=== PATIENT | female | born 1940 | race Caucasian/White ===

== ENCOUNTER 2020-12-06 00:47 | Inpatient (IN) ==
[2020-12-06] MEDS ORDERED: GLUCAGON 1 MG VIAL IM PRN (03:27)
[2020-12-06] MEDS ORDERED: diphenhydrAMINE CAP 25 MG CAPSULE PO PRN (03:27)
[2020-12-06] MEDS ORDERED: ONDANSETRON 4 MG/2 ML VIAL IV PRN (03:27)
[2020-12-06] MEDS ORDERED: DEXTROSE 50% 25 GM/50 ML VIAL IV PRN (03:27)
[2020-12-06] MEDS ORDERED: NICOTINE 21 MG/24 HR PATCH TRANSDERM PRN (03:27)
[2020-12-06] MEDS ORDERED: guaiFENesin/DM ER 600-30 MG TABLET PO PRN (03:27)
[2020-12-06] MEDS ORDERED: AZITHROMYCIN INJ 500 MG in SODIUM CHLORIDE 0.9% 250 ML IV ONE (03:27)
[2020-12-06 05:13] LABS: Basophils % 0.1 % (0.0-0.8); Eosinophils % 0.2 % (0.00-10.9); Hematocrit 34.3 VOL% (35.7-47.0); Hemoglobin 11.7 GM/DL (12.0-16.0); Immature Granulocytes Absolute 0.12 #; Lymphocytes # 0.8 10*3/uL (1.4-4.0); Mean Corpuscular HGB Conc 34.1 GM/DL (32-36); Mean Corpuscular Volume 87.5 FL (87-102); Mean Platelet Volume 9.6 FL (9.6-12.0); Neutrophils % 80.7 % (38.7-73.9); Platelet Count 353 T/CUMM (130-400); Red Blood Count 3.92 MC/CUMM (3.8-5.5); Red Cell Distribution Width 13.2 % (9.3-17.3); White Blood Count 11.5 T/CUMM (4-12)
[2020-12-06] MEDS: cefTRIAXone 1,000 MG in SYRINGE 1 EACH IV SCH (05:17)
[2020-12-06] MEDS: SODIUM CHLORIDE 0.9% 1,000 ML IV SCH ×3 (05:18→21:48)
[2020-12-06 05:30] LABS: Albumin 2.6 G/DL (3.4-5.0); Bilirubin,Total 0.4 MG/DL (0.2-1.0); Calcium 7.9 MG/DL (8.5-10.1); Osmolality,Calculated 251.8 MOS/KG (273-304)
[2020-12-06 05:43] LABS: Ferritin 141.2 ng/ml (8-252)
[2020-12-06] MEDS: ASCORBIC ACID 500 MG TABLET PO SCH ×2 (08:20→20:50)
[2020-12-06] MEDS: CETIRIZINE 10 MG TABLET PO SCH (08:20)
[2020-12-06] MEDS: ZINC GLUCONATE 50 MG TABLET PO SCH (08:20)
[2020-12-06] MEDS: DEXAMETHASONE 4 MG/1 ML VIAL IV SCH (08:20)
[2020-12-06] MEDS: CHOLECALCIFEROL 1,000 UNIT TABLET PO SCH (08:20)
[2020-12-06] MEDS: FAMOTIDINE 20 MG TABLET PO SCH ×2 (08:20→20:50)
[2020-12-06] MEDS: ENOXAPARIN 40 MG/0.4 ML SYRINGE SUBCUT SCH (08:20)
[2020-12-06] MEDS ORDERED: MAGNESIUM SULF RIDER 2 GM in PREMIX 1 EACH IV PRN (12:04)
[2020-12-06] MEDS ORDERED: MAGNESIUM SULF RIDER 4 GM in PREMIX 1 EACH IV PRN (12:04)
[2020-12-06] MEDS: MELATONIN 3 MG TABLET PO PRN (20:50)
[2020-12-07] MEDS: SODIUM CHLORIDE 0.9% 1,000 ML IV SCH ×2 (04:37→12:55)
[2020-12-07 05:23] LABS: Basophils % 0.1 % (0.0-0.8); Hematocrit 33.4 VOL% (35.7-47.0); Hemoglobin 10.9 GM/DL (12.0-16.0); Immature Granulocytes % 1.1 %; Immature Granulocytes Absolute 0.11 #; Lymphocytes # 0.4 10*3/uL (1.4-4.0); Lymphocytes % 4.1 % (21.3-54.2); Mean Corpuscular HGB Conc 32.6 GM/DL (32-36); Mean Corpuscular Volume 90.5 FL (87-102); Mean Platelet Volume 9.4 FL (9.6-12.0); Monocytes % 10.8 % (1.7-12.7); Neutrophils % 83.9 % (38.7-73.9); Platelet Count 325 T/CUMM (130-400); Red Blood Count 3.69 MC/CUMM (3.8-5.5); Red Cell Distribution Width 13.3 % (9.3-17.3); White Blood Count 9.9 T/CUMM (4-12)
[2020-12-07] MEDS: cefTRIAXone 1,000 MG in SYRINGE 1 EACH IV SCH (05:25)
[2020-12-07 05:47] LABS: Calcium 8.1 MG/DL (8.5-10.1); Hypochromasia 1+; Lymphocytes 5 % (20-55); Microcytosis 1+; Osmolality,Calculated 257.1 MOS/KG (273-304); Potassium 3.6 MMOL/L (3.5-5.1); Segmented Neutrophils 81 % (50-85); Total Cells Counted 100
[2020-12-07] MEDS ORDERED: DICLOFENAC 1% GEL 100 GM TUBE TOP PRN (08:34)
[2020-12-07] MEDS: DEXAMETHASONE 4 MG/1 ML VIAL IV SCH (09:22)
[2020-12-07] MEDS: CHOLECALCIFEROL 1,000 UNIT TABLET PO SCH (09:22)
[2020-12-07] MEDS: ENOXAPARIN 40 MG/0.4 ML SYRINGE SUBCUT SCH (09:22)
[2020-12-07] MEDS: FOLIC ACID 1 MG TABLET PO SCH (09:22)
[2020-12-07] MEDS: lisinopriL 10 MG TABLET PO SCH (09:22)
[2020-12-07] MEDS: ASCORBIC ACID 500 MG TABLET PO SCH ×2 (09:23→20:46)
[2020-12-07] MEDS: AZITHROMYCIN 250 MG TABLET PO SCH (09:23)
[2020-12-07] MEDS: FAMOTIDINE 20 MG TABLET PO SCH ×2 (09:23→20:46)
[2020-12-07] MEDS: CETIRIZINE 10 MG TABLET PO SCH (09:23)
[2020-12-07] MEDS: ZINC GLUCONATE 50 MG TABLET PO SCH (09:23)
[2020-12-07] MEDS: ASPIRIN EC 81 MG TABLET PO SCH (09:25)
[2020-12-07] MEDS: CELECOXIB 200 MG CAPSULE PO SCH (09:25)
[2020-12-07] MEDS ORDERED: REMDESIVIR 200 MG in SODIUM CHLORIDE 0.9% 210 ML IV ONE (10:30)
[2020-12-07] MEDS: MULTIVITAMIN (CENTRUM) TABLET PO SCH (16:43)
[2020-12-07] MEDS: CYCLOBENZAPRINE 10 MG TABLET PO SCH (20:47)
[2020-12-08] MEDS: SODIUM CHLORIDE 0.9% 1,000 ML IV SCH ×2 (02:53→16:21)
[2020-12-08] MEDS: cefTRIAXone 1,000 MG in SYRINGE 1 EACH IV SCH (04:44)
[2020-12-08 06:04] LABS: Basophils % 0.1 % (0.0-0.8); Hematocrit 30.7 VOL% (35.7-47.0); Hemoglobin 10.1 GM/DL (12.0-16.0); Immature Granulocytes % 0.8 %; Immature Granulocytes Absolute 0.09 #; Lymphocytes # 0.6 10*3/uL (1.4-4.0); Lymphocytes % 5.1 % (21.3-54.2); Mean Corpuscular HGB Conc 32.9 GM/DL (32-36); Mean Corpuscular Volume 92.2 FL (87-102); Mean Platelet Volume 9.2 FL (9.6-12.0); Monocytes % 11.1 % (1.7-12.7); Neutrophils % 82.9 % (38.7-73.9); Platelet Count 291 T/CUMM (130-400); Red Blood Count 3.33 MC/CUMM (3.8-5.5); Red Cell Distribution Width 13.6 % (9.3-17.3); White Blood Count 10.9 T/CUMM (4-12)
[2020-12-08 06:19] LABS: Osmolality,Calculated 275.7 MOS/KG (273-304); Potassium 4.1 MMOL/L (3.5-5.1)
[2020-12-08] MEDS: CETIRIZINE 10 MG TABLET PO SCH (08:13)
[2020-12-08] MEDS: CHOLECALCIFEROL 1,000 UNIT TABLET PO SCH (08:14)
[2020-12-08] MEDS: ENOXAPARIN 40 MG/0.4 ML SYRINGE SUBCUT SCH (08:14)
[2020-12-08] MEDS: AZITHROMYCIN 250 MG TABLET PO SCH (08:15)
[2020-12-08] MEDS: ASCORBIC ACID 500 MG TABLET PO SCH ×2 (08:15→20:59)
[2020-12-08] MEDS: DEXAMETHASONE 4 MG/1 ML VIAL IV SCH (08:15)
[2020-12-08] MEDS: CELECOXIB 200 MG CAPSULE PO SCH (08:15)
[2020-12-08] MEDS: FAMOTIDINE 20 MG TABLET PO SCH ×2 (08:16→20:59)
[2020-12-08] MEDS: FOLIC ACID 1 MG TABLET PO SCH (08:16)
[2020-12-08] MEDS: ASPIRIN EC 81 MG TABLET PO SCH (08:16)
[2020-12-08] MEDS: ZINC GLUCONATE 50 MG TABLET PO SCH (08:16)
[2020-12-08] MEDS: lisinopriL 10 MG TABLET PO SCH (08:16)
[2020-12-08] MEDS: MULTIVITAMIN (CENTRUM) TABLET PO SCH (08:16)
[2020-12-08] MEDS: OXYBUTYNIN XL 15 MG TABLET PO SCH (08:17)
[2020-12-08] MEDS: REMDESIVIR 100 MG in SODIUM CHLORIDE 0.9% 100 ML IV SCH (10:29)
[2020-12-08] MEDS: ALBUTEROL INHALER 18 GM INH SCH ×3 (16:22→20:59)
[2020-12-08] MEDS: CYCLOBENZAPRINE 10 MG TABLET PO SCH (20:59)
[2020-12-08] MEDS: ACETAMINOPHEN 325 MG TABLET PO PRN (21:01)
[2020-12-08] MEDS: MELATONIN 3 MG TABLET PO PRN (21:01)
[2020-12-09] MEDS: ALBUTEROL INHALER 18 GM INH SCH ×4 (00:09→18:30)
[2020-12-09] MEDS: cefTRIAXone 1,000 MG in SYRINGE 1 EACH IV SCH (04:30)
[2020-12-09] MEDS: SODIUM CHLORIDE 0.9% 1,000 ML IV SCH (08:50)
[2020-12-09] MEDS: AZITHROMYCIN 250 MG TABLET PO SCH (08:55)
[2020-12-09] MEDS: ENOXAPARIN 40 MG/0.4 ML SYRINGE SUBCUT SCH (08:55)
[2020-12-09] MEDS: FOLIC ACID 1 MG TABLET PO SCH (08:56)
[2020-12-09] MEDS: CETIRIZINE 10 MG TABLET PO SCH (08:56)
[2020-12-09] MEDS: ASCORBIC ACID 500 MG TABLET PO SCH ×2 (08:56→21:59)
[2020-12-09] MEDS: CELECOXIB 200 MG CAPSULE PO SCH (08:56)
[2020-12-09] MEDS: OXYBUTYNIN XL 15 MG TABLET PO SCH (08:56)
[2020-12-09] MEDS: MULTIVITAMIN (CENTRUM) TABLET PO SCH (08:56)
[2020-12-09] MEDS: lisinopriL 10 MG TABLET PO SCH (08:56)
[2020-12-09] MEDS: CHOLECALCIFEROL 1,000 UNIT TABLET PO SCH (08:56)
[2020-12-09] MEDS: FAMOTIDINE 20 MG TABLET PO SCH ×2 (08:56→21:59)
[2020-12-09] MEDS: DEXAMETHASONE 4 MG/1 ML VIAL IV SCH (08:56)
[2020-12-09] MEDS: ASPIRIN EC 81 MG TABLET PO SCH (08:56)
[2020-12-09] MEDS: ZINC GLUCONATE 50 MG TABLET PO SCH (08:56)
[2020-12-09] MEDS: REMDESIVIR 100 MG in SODIUM CHLORIDE 0.9% 100 ML IV SCH (08:57)
[2020-12-09] MEDS: hydrALAZINE 20 MG/1 ML VIAL IV PRN (12:05)
[2020-12-09] MEDS: CYCLOBENZAPRINE 10 MG TABLET PO SCH (21:59)
[2020-12-09] MEDS: ACETAMINOPHEN 325 MG TABLET PO PRN (21:59)
[2020-12-09] MEDS: MELATONIN 3 MG TABLET PO PRN (21:59)
[2020-12-10] MEDS: ALBUTEROL INHALER 18 GM INH SCH ×4 (00:16→19:13)
[2020-12-10] MEDS: cefTRIAXone 1,000 MG in SYRINGE 1 EACH IV SCH (05:52)
[2020-12-10] MEDS: hydrALAZINE 20 MG/1 ML VIAL IV PRN (06:18)
[2020-12-10] MEDS ORDERED: ERGOCALCIFEROL 50,000 UNIT CAPSULE PO SCH (09:00)
[2020-12-10] MEDS: AZITHROMYCIN 250 MG TABLET PO SCH (10:10)
[2020-12-10] MEDS: ENOXAPARIN 40 MG/0.4 ML SYRINGE SUBCUT SCH (10:10)
[2020-12-10] MEDS: ASPIRIN EC 81 MG TABLET PO SCH (10:10)
[2020-12-10] MEDS: CHOLECALCIFEROL 1,000 UNIT TABLET PO SCH (10:10)
[2020-12-10] MEDS: CETIRIZINE 10 MG TABLET PO SCH (10:10)
[2020-12-10] MEDS: DEXAMETHASONE 4 MG/1 ML VIAL IV SCH (10:10)
[2020-12-10] MEDS: FAMOTIDINE 20 MG TABLET PO SCH ×2 (10:10→21:00)
[2020-12-10] MEDS: CELECOXIB 200 MG CAPSULE PO SCH (10:10)
[2020-12-10] MEDS: FOLIC ACID 1 MG TABLET PO SCH (10:10)
[2020-12-10] MEDS: lisinopriL 10 MG TABLET PO SCH (10:10)
[2020-12-10] MEDS: MULTIVITAMIN (CENTRUM) TABLET PO SCH (10:10)
[2020-12-10] MEDS: ZINC GLUCONATE 50 MG TABLET PO SCH (10:10)
[2020-12-10] MEDS: ASCORBIC ACID 500 MG TABLET PO SCH ×2 (10:10→21:00)
[2020-12-10] MEDS: OXYBUTYNIN XL 15 MG TABLET PO SCH (10:10)
[2020-12-10] MEDS: REMDESIVIR 100 MG in SODIUM CHLORIDE 0.9% 100 ML IV SCH (10:13)
[2020-12-10] MEDS: CYCLOBENZAPRINE 10 MG TABLET PO SCH (21:00)
[2020-12-11] MEDS: ALBUTEROL INHALER 18 GM INH SCH ×4 (00:56→19:19)
[2020-12-11] MEDS: cefTRIAXone 1,000 MG in SYRINGE 1 EACH IV SCH (04:13)
[2020-12-11 06:19] LABS: Basophils % 0.1 % (0.0-0.8); Eosinophils % 0.1 % (0.00-10.9); Hematocrit 34.8 VOL% (35.7-47.0); Hemoglobin 11.4 GM/DL (12.0-16.0); Immature Granulocytes % 0.8 %; Lymphocytes # 0.7 10*3/uL (1.4-4.0); Lymphocytes % 5.1 % (21.3-54.2); Mean Corpuscular HGB Conc 32.8 GM/DL (32-36); Mean Corpuscular Volume 92.3 FL (87-102); Mean Platelet Volume 9.2 FL (9.6-12.0); Monocytes % 7.9 % (1.7-12.7); Platelet Count 282 T/CUMM (130-400); Red Blood Count 3.77 MC/CUMM (3.8-5.5); Red Cell Distribution Width 14.6 % (9.3-17.3); White Blood Count 12.9 T/CUMM (4-12)
[2020-12-11 06:41] LABS: Calcium 8.8 MG/DL (8.5-10.1); Osmolality,Calculated 277.7 MOS/KG (273-304); Potassium 3.9 MMOL/L (3.5-5.1)
[2020-12-11] MEDS: ENOXAPARIN 40 MG/0.4 ML SYRINGE SUBCUT SCH (09:17)
[2020-12-11] MEDS: CHOLECALCIFEROL 1,000 UNIT TABLET PO SCH (09:17)
[2020-12-11] MEDS: CELECOXIB 200 MG CAPSULE PO SCH (09:17)
[2020-12-11] MEDS: lisinopriL 10 MG TABLET PO SCH (09:17)
[2020-12-11] MEDS: OXYBUTYNIN XL 15 MG TABLET PO SCH (09:17)
[2020-12-11] MEDS: ZINC GLUCONATE 50 MG TABLET PO SCH (09:17)
[2020-12-11] MEDS: ASPIRIN EC 81 MG TABLET PO SCH (09:17)
[2020-12-11] MEDS: DEXAMETHASONE 4 MG/1 ML VIAL IV SCH (09:17)
[2020-12-11] MEDS: CETIRIZINE 10 MG TABLET PO SCH (09:17)
[2020-12-11] MEDS: MULTIVITAMIN (CENTRUM) TABLET PO SCH (09:17)
[2020-12-11] MEDS: FAMOTIDINE 20 MG TABLET PO SCH ×2 (09:17→20:40)
[2020-12-11] MEDS: ASCORBIC ACID 500 MG TABLET PO SCH ×2 (09:17→20:40)
[2020-12-11] MEDS: FOLIC ACID 1 MG TABLET PO SCH (09:17)
[2020-12-11] MEDS: AZITHROMYCIN 250 MG TABLET PO SCH (09:17)
[2020-12-11] MEDS: REMDESIVIR 100 MG in SODIUM CHLORIDE 0.9% 100 ML IV SCH (10:46)
[2020-12-11] MEDS: CYCLOBENZAPRINE 10 MG TABLET PO SCH (20:40)
[2020-12-12] MEDS: ALBUTEROL INHALER 18 GM INH SCH ×3 (02:32→14:08)
[2020-12-12] MEDS: cefTRIAXone 1,000 MG in SYRINGE 1 EACH IV SCH (04:35)
[2020-12-12 06:55] LABS: Basophils % 0.1 % (0.0-0.8); Eosinophils % 0.1 % (0.00-10.9); Hematocrit 33.4 VOL% (35.7-47.0); Hemoglobin 10.5 GM/DL (12.0-16.0); Immature Granulocytes % 0.6 %; Immature Granulocytes Absolute 0.07 #; Lymphocytes # 0.7 10*3/uL (1.4-4.0); Lymphocytes % 6.1 % (21.3-54.2); Mean Corpuscular HGB Conc 31.4 GM/DL (32-36); Mean Corpuscular Volume 94.1 FL (87-102); Mean Platelet Volume 9.1 FL (9.6-12.0); Monocytes % 9.6 % (1.7-12.7); Neutrophils % 83.5 % (38.7-73.9); Platelet Count 256 T/CUMM (130-400); Red Blood Count 3.55 MC/CUMM (3.8-5.5); Red Cell Distribution Width 14.6 % (9.3-17.3); White Blood Count 11.9 T/CUMM (4-12)
[2020-12-12 07:24] LABS: Calcium 8.7 MG/DL (8.5-10.1); Osmolality,Calculated 275.8 MOS/KG (273-304)
[2020-12-12] MEDS: ENOXAPARIN 40 MG/0.4 ML SYRINGE SUBCUT SCH (09:47)
[2020-12-12] MEDS: DEXAMETHASONE 4 MG/1 ML VIAL IV SCH (09:47)
[2020-12-12] MEDS: AZITHROMYCIN 250 MG TABLET PO SCH (09:47)
[2020-12-12] MEDS: CELECOXIB 200 MG CAPSULE PO SCH (09:47)
[2020-12-12] MEDS: CHOLECALCIFEROL 1,000 UNIT TABLET PO SCH (09:47)
[2020-12-12] MEDS: FAMOTIDINE 20 MG TABLET PO SCH (09:47)
[2020-12-12] MEDS: ASCORBIC ACID 500 MG TABLET PO SCH (09:47)
[2020-12-12] MEDS: FOLIC ACID 1 MG TABLET PO SCH (09:48)
[2020-12-12] MEDS: CETIRIZINE 10 MG TABLET PO SCH (09:48)
[2020-12-12] MEDS: MULTIVITAMIN (CENTRUM) TABLET PO SCH (09:48)
[2020-12-12] MEDS: lisinopriL 10 MG TABLET PO SCH (09:48)
[2020-12-12] MEDS: OXYBUTYNIN XL 15 MG TABLET PO SCH (09:48)
[2020-12-12] MEDS: ASPIRIN EC 81 MG TABLET PO SCH (09:48)
[2020-12-12] MEDS: ZINC GLUCONATE 50 MG TABLET PO SCH (09:48)
[2020-12-12 11:48] VITALS: BP 149/80
== END 2020-12-12 13:40 | disposition swing bed (61) | DRG 177 ==
LOC: SUATTDRO 03:03 → N.2E 03:03
PROVIDERS: ADMIT Internal Medicine; ATTEND Internal Medicine